=== PATIENT | female | born 1950 | race Two or more races ===

== ENCOUNTER 2023-08-19 11:26 | Emergency (ER) | payer MEDICAID, OTHER ==
[~2023-08-19] VITALS: Ht 152.4 cm; Wt 77.0 kg
[2023-08-19] MEDS: SODIUM CHLORIDE 0.9% 1,000 ML IV ONE (12:45)
[2023-08-19 13:59] LABS: Basophils # (auto) 0 10 ^3/uL (0-0.2); Basophils % (auto) 0.4 % (0.0-2.0); Eosinophils # (auto) 0 10 ^3/uL (0-0.8); Eosinophils % (auto) 0.9 % (0.0-7.0); Hematocrit 37.7 % (36.0-46.0); Hemoglobin 12.4 g/dL (12.2-16.2); Lymphocytes # (auto) 1.8 10 ^3/uL (0.4-5.4); Lymphocytes % (auto) 35.6 % (10.0-50.0); Mean Corpuscular Hemoglobin 31.7 pg (28.0-32.0); Mean Corpuscular Hgb Conc. 32.9 g/dL (32.0-36.0); Mean Corpuscular Volume 96.3 fL (80.0-100.0); Monocytes # (auto) 0.5 10 ^3/uL (0-1.3); Monocytes % (auto) 9.1 % (0.0-12.0); Neutrophils # (auto) 2.7 10 ^3/uL (1.6-8.6); Red Blood Cells 3.91 10^6/uL (4.0-5.20); Red Cell Distribution Width 14.6 % (11.8-14.3); White Blood Cell 5.1 10^3/uL (4.4-10.8)
[2023-08-19 14:21] LABS: Alanine Aminotransferase 19 U/L (7-40); Albumin 4.1 g/dL (3.2-4.8); Alkaline Phosphatase 105 U/L (46-116); Anion Gap 7 (5-15); Aspartate Aminotransferase 29 U/L (13-40); BUN/Creatinine Ratio 16.7 (10.0-20.0); Blood Urea Nitrogen 12 mg/dL (9-23); Calcium 9.4 mg/dL (8.7-10.4); Carbon Dioxide 25 mmol/L (20-30); Chloride 109 mmol/L (98-107); Glucose 100 mg/dL (74-106); Magnesium 1.9 mg/dL (1.6-2.6); Potassium 4.6 mmol/L (3.5-5.1); Sodium 141 mmol/L (136-145)
[2023-08-19 14:22] LABS: Bilirubin, Total 0.4 mg/dL (0.2-1.0); Total Protein 5.7 g/dL (5.7-8.2)
[2023-08-19] MEDS ORDERED: DICL50TA2 PO (16:34)
[2023-08-19] MEDS ORDERED: FAMO20TA10 PO (16:34)
[2023-08-19 16:42] VITALS: BP 152/54; PULSE 87; RESP 18; TEMP 97.9; O2SAT 98
== END 2023-08-19 16:53 | disposition home or self-care (01) ==
LOC: ER 11:26
DX: M66.0 Rupture of popliteal cyst (principal); E78.5 Hyperlipidemia, unspecified; E11.9 Type 2 diabetes mellitus without complications; M19.90 Unspecified osteoarthritis, unspecified site; Z98.890 Other specified postprocedural states
CPT/HCPCS: 36415; 71046; 80053; 83735; 85025; 93971

== ENCOUNTER 2023-10-06 12:01 | Inpatient (IN) | payer MEDICAID ==
[~2023-10-06] VITALS: Ht 160 cm; Wt 68.4 kg
[~2023-10-06 12:01] MED LIST: DICL50TA2 PO; FAMO20TA10 PO
[2023-10-06 12:39] VITALS: O2SAT 98
[2023-10-06] MEDS: ACETAMINOPHEN 325 MG TAB PO ONE (12:43)
[2023-10-06] MEDS: ONDANSETRON ODT 4 MG TAB PO ONE (12:43)
[2023-10-06 12:58] LABS: Basophils # (auto) 0 10 ^3/uL (0-0.2); Basophils % (auto) 0.4 % (0.0-2.0); Eosinophils # (auto) 0 10 ^3/uL (0-0.8); Eosinophils % (auto) 0.5 % (0.0-7.0); Hemoglobin 13.3 g/dL (12.2-16.2); Lymphocytes # (auto) 1.6 10 ^3/uL (0.4-5.4); Lymphocytes % (auto) 29.5 % (10.0-50.0); Mean Corpuscular Hemoglobin 31.4 pg (28.0-32.0); Mean Corpuscular Hgb Conc. 33.3 g/dL (32.0-36.0); Mean Corpuscular Volume 94.1 fL (80.0-100.0); Monocytes # (auto) 0.3 10 ^3/uL (0-1.3); Monocytes % (auto) 6.1 % (0.0-12.0); Neutrophils # (auto) 3.5 10 ^3/uL (1.6-8.6); Neutrophils % (auto) 63.5 % (37.0-80.0); Nucleated Red Blood Cells % 0.2 %; Red Blood Cells 4.25 10^6/uL (4.0-5.20); Red Cell Distribution Width 14.8 % (11.8-14.3); White Blood Cell 5.4 10^3/uL (4.4-10.8)
[2023-10-06 13:13] LABS: Chloride 107 mmol/L (98-107); Potassium 3.9 mmol/L (3.5-5.1); Sodium 140 mmol/L (136-145)
[2023-10-06 13:14] LABS: Anion Gap 9 (5-15); Calcium 9.7 mg/dL (8.7-10.4); Carbon Dioxide 24 mmol/L (20-30)
[2023-10-06 13:19] LABS: BUN/Creatinine Ratio 15.9 (10.0-20.0); Blood Urea Nitrogen 11 mg/dL (9-23); Glucose 124 mg/dL (74-106)
[2023-10-06] MEDS ORDERED: NITROGLYCERIN 0.4 MG SL TAB SL PRN (14:15)
[2023-10-06] MEDS: ASPirin 325 MG TAB PO ONE (14:15)
[2023-10-06] MEDS ORDERED: MORPHINE SULFATE INJ 2 MG/ml SYRG IV PRN (14:15)
[2023-10-06] MEDS ORDERED: DEXTROSE (50%) 50ML SYRG IV PRN (14:15)
[2023-10-06 15:29] LABS: LDL Cholesterol 143 mg/dL (< 100); Triglycerides 87 mg/dL (< 150)
[2023-10-06] MEDS: SODIUM CHLORIDE 0.9% 1,000 ML IV SCH (15:29)
[2023-10-06 15:31] LABS: Cholesterol 180 mg/dL (< 200); HDL Cholesterol 39 mg/dL (40-59)
[2023-10-06] MEDS: ACCU-CHEK COMFORT CURVE STRIP VI SCH (17:48)
[2023-10-06] MEDS: InsuLIN REG 1unit/0.01ml Soln (100units/ml) SC SCH (17:48)
[2023-10-06] MEDS: FAMOTIDINE 20 MG TAB PO SCH (22:24)
[2023-10-07] VITALS (8 sets, daily range): BP systolic 129–139; BP diastolic 45–63; PULSE 74–101; RESP 16–18; TEMP 97.4–97.9; O2SAT 94–98
[2023-10-07 09:35] LABS: Basophils # (auto) 0 10 ^3/uL (0-0.2); Basophils % (auto) 0.3 % (0.0-2.0); Eosinophils # (auto) 0 10 ^3/uL (0-0.8); Eosinophils % (auto) 0.5 % (0.0-7.0); Hematocrit 38.6 % (36.0-46.0); Hemoglobin 13.1 g/dL (12.2-16.2); Lymphocytes # (auto) 1.4 10 ^3/uL (0.4-5.4); Lymphocytes % (auto) 29.4 % (10.0-50.0); Mean Corpuscular Hemoglobin 31.7 pg (28.0-32.0); Mean Corpuscular Hgb Conc. 33.9 g/dL (32.0-36.0); Mean Corpuscular Volume 93.6 fL (80.0-100.0); Monocytes # (auto) 0.4 10 ^3/uL (0-1.3); Monocytes % (auto) 7.5 % (0.0-12.0); Neutrophils % (auto) 62.3 % (37.0-80.0); Red Blood Cells 4.12 10^6/uL (4.0-5.20); Red Cell Distribution Width 14.8 % (11.8-14.3); White Blood Cell 4.9 10^3/uL (4.4-10.8)
[2023-10-07 10:07] LABS: Alanine Aminotransferase 16 U/L (7-40); Albumin 4.3 g/dL (3.2-4.8); Alkaline Phosphatase 94 U/L (46-116); Anion Gap 8 (5-15); Aspartate Aminotransferase 29 U/L (13-40); BUN/Creatinine Ratio 16.4 (10.0-20.0); Blood Urea Nitrogen 11 mg/dL (9-23); Calcium 9.1 mg/dL (8.7-10.4); Carbon Dioxide 25 mmol/L (20-30); Chloride 106 mmol/L (98-107); Glucose 150 mg/dL (74-106); Potassium 3.6 mmol/L (3.5-5.1); Sodium 139 mmol/L (136-145)
[2023-10-07 10:08] LABS: Bilirubin, Total 0.8 mg/dL (0.2-1.0); Total Protein 6.9 g/dL (5.7-8.2)
[2023-10-07] MEDS: ASPirin 81 mg TAB PO SCH (11:05)
[2023-10-07] MEDS: ENOXAPARIN SOD 40 MG/0.4 ML SYRINGE SC SCH (11:06)
[2023-10-07] MEDS: hydroCHLOROthiazide 25 MG TAB PO ONE (17:45)
[2023-10-07 20:41] LABS: Urine Bacteria None Seen /hpf (None Seen)
[2023-10-07] MEDS: ACETAMINOPHEN 325 MG TAB PO PRN (20:49)
[2023-10-07] MEDS: ATORVASTATIN 20 MG TAB PO SCH (20:49)
[2023-10-07 20:51] LABS: Urine Blood Negative /uL (Negative); Urine Clarity Clear (Clear); Urine Color Light-Yellow (Yellow); Urine Protein, UAD Negative (Negative); Urine Specific Gravity 1.007 (1.001-1.035); Urine Urobilinogen Normal (Negative); Urine WBC <1 /hpf (0 - 5); Urine pH 6.5 (5.0-9.0)
[2023-10-08 01:00] VITALS: BP 131/63; PULSE 78; RESP 16; TEMP 97.8; O2SAT 100
[2023-10-08 05:00] VITALS: BP 118/49; PULSE 78; RESP 17; TEMP 98.3; O2SAT 98
[2023-10-08 08:00] VITALS: PULSE 86; RESP 18
[2023-10-08 09:00] VITALS: BP 138/55; PULSE 78; RESP 16; TEMP 98.4; O2SAT 97
[2023-10-08] MEDS: hydroCHLOROthiazide 25 MG TAB PO SCH (09:01)
[2023-10-08] MEDS ORDERED: ARTIFICIAL TEARS 15ml EACHEYE PRN (11:45)
[2023-10-08] MEDS ORDERED: TRIA37.587 PO (11:49)
[2023-10-08] MEDS ORDERED: GLIP5TAB21 PO (11:52)
[2023-10-08] MEDS ORDERED: METF-370 PO (11:53)
[2023-10-08] MEDS ORDERED: ATOR20TA50 PO (11:54)
[2023-10-08] MEDS ORDERED: GABA-1250 PO (11:54)
[2023-10-08 13:00] VITALS: BP 131/78; PULSE 87; RESP 14; TEMP 87; O2SAT 96
[2023-10-08 13:53] VITALS: BP 131/59; PULSE 87; RESP 14; TEMP 97.9; O2SAT 96
== END 2023-10-08 15:30 | disposition home or self-care (01) | DRG 203 ==
LOC: ER 12:06 → TELE 14:17 → TELE-WESTW 14:17
PROVIDERS: ADMIT Internal Medicine; ATTEND Emergency Medicine
DX: M94.0 Chondrocostal junction syndrome [Tietze] (principal); E11.9 Type 2 diabetes mellitus without complications; E78.5 Hyperlipidemia, unspecified; K21.9 Gastro-esophageal reflux disease without esophagitis; I10 Essential (primary) hypertension; M54.2 Cervicalgia; Z79.899 Other long term (current) drug therapy
CPT/HCPCS: 36415; 71045; 80048; 80053; 80061; 81001; 82962; 83036; 84443; 84484; 85025; 93005; 93306; 93971; G0378; J1815; Q0162

== ENCOUNTER 2024-06-14 13:34 | Emergency (ER) | payer MEDICAID ==
[~2024-06-14] VITALS: Ht 154.9 cm; Wt 68.1 kg
[~2024-06-14 13:34] MED LIST changes: +ATOR20TA50 PO; +GABA-1250 PO; +GLIP5TAB21 PO; +METF-370 PO; +TRIA37.587 PO
[2024-06-14 14:36] VITALS: BP 147/67; PULSE 83; RESP 18; TEMP 98.4; O2SAT 97
[2024-06-14] MEDS ORDERED: DULO20CA PO (16:06)
--- NOTE | 2024-06-14 16:06 | ED.PDOC ---
Musculoskeletal HPI Comments 73-year-old female presents with a chief complaint of neuropathy. Has a pertinent MHx of diabetes. Currently taking gabapentin 300 mg b.i.d. Denies chest pain shortness of breath Wells score is negative for DVT Chief Complaint: Lower Extremity Time Seen by MD: 14:00 Primary Care Provider: NONE Reviewed Notes: Nurses Notes, Medications, Allergies Allergies: Coded Allergies: NO KNOWN ALLERGIES (Unverified , 08/19/23) Home Meds Active Scripts Duloxetine Hcl (Cymbalta) 20 Mg Cap, 1 CAP PO DAILY for 30 Days, #30 CAP 1 Refill Prov:ELDER DAVIDSON NP 06/14/24 Hydrochlorothiazide W/Triamter (Dyazide 37.5/25MG) 1 Cap Cp, 1 CAP PO DAILY for 30 Days, #30 CAP 3 Refills Prov:JOSE ALBERTO CHANG MD 10/08/23 Famotidine (PEPCID TABLET) 20 Mg Tb, 1 TAB PO BID for 20 Days, #40 TAB 5 Refills Prov:CHRISTIANO AARON MD 08/19/23 Diclofenac Potassium (Diclofenac Potassium) 50 Mg Tab, 1 TAB PO TIDP for 5 Days, #15 TAB Prov:CHRISTIANO AARON MD 08/19/23 Reported Medications Atorvastatin Calcium (ATORVASTATIN CALCIUM) 20 Mg Tab, 1 TAB PO DAILY, #30 TAB 5 Refills 10/08/23 Gabapentin (Gabapentin) 300 Mg Cap, 1 CAP PO TID, #90 CAP 5 Refills 10/08/23 Metformin Hydrochloride (Metformin Hcl) 500 Mg Tab, 1 TAB PO BID, #60 TAB 3 Refills 10/08/23 Glipizide (Glipizide) 5 Mg Tab, 1 TAB PO DAILY, #60 TAB 3 Refills 10/08/23 Information Source: Patient Mode of Arrival: Ambulatory Past Medical History PAST MEDICAL HISTORY: Arthritis, DM, High Lipids 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 Family History Family History: Reviewed,noncontributory to illness, Unknown Social History Smoker: Non-Smoker Alcohol: Denies ETOH Use Drugs: Denies Drug Use Lives In: Home All Other Systems: Reviewed and Negative (Per HPI) Physical Exam General Appearance: No Apparent Distress, Normal HEENT: Normal ENT Inspection, Pharynx Normal, TMs Normal Neck: Full Range of Motion, Non-Tender, Normal, Normal Inspection Respiratory: Chest Non-Tender, Lungs Clear, No Accessory Muscle Use, No Respiratory Distress, Normal Breath Sounds Cardiovascular: No Edema, No JVD, No Murmur, No Gallop, Normal Peripheral Pulses, Regular Rate/Rhythm Breast Exam: Deferred Gastrointestinal: No Organomegaly, Non Tender, No Pulsatile Mass, Normal Bowel Sounds, Soft Genitalia: Deferred Pelvic: Deferred Rectal: Deferred Extremities: No calf tenderness, Normal capillary refill, Normal inspection, Normal range of motion, Non-tender, No pedal edema Musculoskeletal : Apperance: Normal Neurologic: Alert, motor and generator assembler II-XII nml as Tested, No Motor Deficits, Normal Affect, Normal Mood, No Sensory Deficits Cerebellar Function: Normal Reflexes: Normal Skin: Dry, Normal Color, Warm Lymphatic: No Adenopathy Was a procedure done? Was a procedure done?: No Differential Diagnosis EXT Differential Diagnosis: Other X-Ray, Labs, Meds, VS Vital Signs Date Time Temp Pulse Resp B/P (MAP) Pulse Ox O2 Delivery O2 Flow Rate FiO2 06/14/24 14:36 98.4 83 18 147/67 (93) 97 98.4 06/14/24 14:36 83 18 97 Room Air 06/14/24 14:01 98.4 83 18 147/67 (93) 97 98.4 X-Ray, Labs, Meds, VS Comment Continue with the gabapentin and trial of Cymbalta once daily On reevaluation, patient had symptomatic improvement. Patient is stable for discharge at this time. External notes reviewed. Test results and diagnostic imaging interpreted. All diagnostic findings, discharge care, education and instructions provided Follow-up with PCP in 2 to 3 days Patient verbalized understanding and agreed to treatment plan Vital signs stable, afebrile, no acute distress noted Patient ambulatory with strong steady gait Advised to return precautions for any new or worsening symptoms, return to ER immediately for re-evaluation Patient is aware that the purpose of this visit was for an acute medical em ergency requiring emergent stabilization. Chronic conditions, including malignancies have not been ruled out. Patient is instructed to follow up with PCP as directed and discharge instructions for continued care and workup. If unable to arrange follow-up, patient is to return to the emergency department for reassessment. Patient (parent or legal guardian if applicable) was given verbal and written discharge instructions and acknowledges understanding. Time of 1ST Reevaluation: 16:00 Reevaluation 1ST: Improved Patient Education/Counseling: Diagnosis, Treatment Family Education/Counseling: Diagnosis, Treatment Departure 1 Departure Time of Disposition: 16:05 Impression: Primary Impression: Neuropathy Disposition: 01 HOME / SELF CARE / HOMELESS Condition: Stable e-Prescriptions Duloxetine Hcl (Cymbalta) 20 Mg Cap 1 CAP PO DAILY for 30 Days, #30 CAP 1 Refill Prov: ELDER DAVIDSON NP 06/14/24 Critical Care Note Critical Care Time?: No Stability Stability form required: No Heart Score Heart Score: Heart Score Response (Comments) Value History N/A 0 EKG N/A 0 Age N/A 0 Risk Factors N/A 0 Troponin N/A 0 Total 0 ELDER DAVIDSON NP Jun 14, 2024 16:06
== END 2024-06-14 16:13 | disposition home or self-care (01) ==
LOC: ER 13:34
DX: G62.9 Polyneuropathy, unspecified (principal); E11.9 Type 2 diabetes mellitus without complications; E78.5 Hyperlipidemia, unspecified; M19.90 Unspecified osteoarthritis, unspecified site; Z79.84 Long term (current) use of oral hypoglycemic drugs; Z79.899 Other long term (current) drug therapy

== ENCOUNTER 2024-12-19 17:30 | Emergency (ER) | payer MEDICAID ==
[~2024-12-19] VITALS: Ht 154.9 cm; Wt 73.0 kg
[~2024-12-19 17:30] MED LIST changes: +DULO20CA PO
[2024-12-19] MEDS: HYDROcodone-ACET 10/325MG TAB PO ONE (18:30)
--- NOTE | 2024-12-19 18:34 | ED.PDOC ---
Musculoskeletal HPI Comments 74-year-old female who came to ER for right lower extremity pain. Has a history of hypertension, diabetes, dyslipidemia, status post right knee surgery. Past 3 days, having right hip pain, radiating down her right lower leg, with the swelling of the right knee. Denies any recent trauma. Chief Complaint: Lower Extremity Time Seen by MD: 18:33 Primary Care Provider: NONE Reviewed Notes: Nurses Notes Allergies: Coded Allergies: NO KNOWN ALLERGIES (Unverified , 08/19/23) Home Meds Active Scripts Gabapentin (Once-Daily) (Gabapentin) 300 Mg Tab, 300 MG PO Q6HP PRN for 60 Days, #240 TAB Prov:BRIAN MOORE MD 12/19/24 Duloxetine Hcl (Cymbalta) 20 Mg Cap, 1 CAP PO DAILY for 30 Days, #30 CAP 1 Refill Prov:ELDER DAVIDSON NP 06/14/24 Hydrochlorothiazide W/Triamter (Dyazide 37.5/25MG) 1 Cap Cp, 1 CAP PO DAILY for 30 Days, #30 CAP 3 Refills Prov:JOSE ALBERTO CHANG MD 10/08/23 Famotidine (PEPCID TABLET) 20 Mg Tb, 1 TAB PO BID for 20 Days, #40 TAB 5 Refills Prov:CHRISTIANO AARON MD 08/19/23 Diclofenac Potassium (Diclofenac Potassium) 50 Mg Tab, 1 TAB PO TIDP for 5 Days, #15 TAB Prov:CHRISTIANO AARON MD 08/19/23 Reported Medications Atorvastatin Calcium (ATORVASTATIN CALCIUM) 20 Mg Tab, 1 TAB PO DAILY, #30 TAB 5 Refills 10/08/23 Gabapentin (Gabapentin) 300 Mg Cap, 1 CAP PO TID, #90 CAP 5 Refills 10/08/23 Metformin Hydrochloride (Metformin Hcl) 500 Mg Tab, 1 TAB PO BID, #60 TAB 3 Refills 10/08/23 Glipizide (Glipizide) 5 Mg Tab, 1 TAB PO DAILY, #60 TAB 3 Refills 10/08/23 Information Source: Patient Mode of Arrival: Ambulatory Location: Right Extremity Location: Knee, Leg Timing: Days Severity: Moderate Able to Move Extremity: Yes Bear Weight: Limited Pain: Moderate Mechanism: Spontaneous Circumstances: Spontaneous Onset of Symptoms: Spontaneous Symptoms: Swelling, Pain Associated signs and symptoms: Leg pain, Hip pain Past Medical History PAST MEDICAL HISTORY: Arthritis, DM, High Lipids, HTN Past Medical History (Other): Ovarian cancer Surgical History: Cholecystectomy, Hysterectomy Surgical History (Other): Right knee surgery 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 Family History Family History: Reviewed,noncontributory to illness, Unknown Social History Smoker: Non-Smoker Alcohol: Denies ETOH Use Drugs: Denies Drug Use Lives In: Home Constitutional: denies: chills, diaphoresis, fatigue, fever, malaise, sweats, weakness, others EENTM: denies: blurred vision, double vision, ear bleeding, ear discharge, ear drainage, ear pain, ear ringing, eye pain, eye redness, hearing loss, mouth pain, mouth swelling, nasal discharge, nose bleeding, nose congestion, nose pain, photophobia, tearing, throat pain, throat swelling, voice changes, others Respiratory: denies: cough, hemoptysis, orthopnea, SOB at rest, shortness of breath, SOB with excertion, stridor, wheezing, others Cardiovascular: denies: chest pain, dizzy spells, diaphoresis, Dyspnea on exertion, edema, irregular heart beat, left arm pain, lightheadedness, palp itations, PND, syncope, others Gastrointestinal: denies: abdomen distended, abdominal pain, blood streaked bowels, constipated, diarrhea, dysphagia, difficulty swallowing, hematemesis, melena, nausea, poor appetite, poor fluid intake, rectal bleeding, rectal pain, vomiting, others Genitourinary: denies: abnormal vagina bleeding, burning, dyspareunia, dysuria, flank pain, frequency, hematuria, incontinence, pain, , vagina discharge, urgency, others Neurological: denies: dizziness, fainting, headache, left sided numbness, left sided weakness, numbness, paresthesia, pre-existing deficit, right sided numbness, right sided weakness, seizure, speech problems, tingling, tremors, weakness, others Musculoskeletal: reports: joint pain (Right hip), muscle pain (Right lower leg); denies: back pain, gout, joint swelling, muscle stiffness, neck pain, others Integumetry: denies: bruises, change in color, change in hair/nails, dryness, laceration, lesions, lumps, rash, wounds, others Allergic/Immunocompromised: denies: Difficulty Healing, Frequent Infections, Hives, Itching, others Hematologic/Lymphatic: denies: anemia, blood clots, easy bleeding, easy bruising, swollen glands, others Endocrine: denies: excessive hunger, excessive sweating, excessive thirst, excessive urination, flushing, intolerance to cold, intolerance to heat, unexplained weight gain, unexplained weight loss, others Psychiatric: denies: anxiety, bipolar disorder, depression, hopeless, panic disorder, schizophrenia, sleepless, suicidal, others Physical Exam General Appearance: No Apparent Distress, Normal HEENT: Normal ENT Inspection, Pharynx Normal, TMs Normal Neck: Full Range of Motion, Non-Tender, Normal, Normal Inspection Respiratory: Chest Non-Tender, Lungs Clear, No Accessory Muscle Use, No Respiratory Distress, Normal Breath Sounds Cardiovascular: No Edema, No JVD, No Murmur, No Gallop, Normal Peripheral Pulses, Regular Rate/Rhythm Breast Exam: Deferred Gastrointestinal: No Organomegaly, Non Tender, No Pulsatile Mass, Normal Bowel Sounds, Soft Genitalia: Deferred Pelvic: Deferred Rectal: Deferred Extremities: No calf tenderness, Normal capillary refill, Normal inspection, Normal range of motion, Non-tender, No pedal edema Musculoskeletal : Apperance: Normal Neurologic: Alert, probation and parole officer II-XII nml as Tested, No Motor Deficits, Normal Affect, Normal Mood, No Sensory Deficits Cerebellar Function: Normal Reflexes: Normal Skin: Dry, Normal Color, Warm Lymphatic: No Adenopathy Was a procedure done? Was a procedure done?: No Differential Diagnosis EXT Differential Diagnosis: Cellulitis, Deep Vein Thrombosis, Sprain, Arthritis, Other (Sciatica) X-Ray, Labs, Meds, VS Vital Signs Date Time Temp Pulse Resp B/P (MAP) Pulse Ox O2 Delivery O2 Flow Rate FiO2 12/19/24 19:26 97.9 80 16 144/58 (86) 98 97.9 12/19/24 19:26 80 16 98 Room Air 12/19/24 17:31 98.3 85 14 137/85 98 98.3 Current Medications Medications (Trade) Dose Ordered Sig/Celestina Route Start Time Stop Time Status Last Admin Acetaminophen/ Hydrocodone Bitart (Warren 10/325MG Tab) 1 tab ONCE ONCE PO 12/19/24 18:30 12/19/24 18:32 DC 12/19/24 18:30 PROCEDURE(s): PELVS - PELVIS AP REASON: pain ORDER NUMBER(s): [id number], ACCESSION NUMBER(s): [id number] CLINICAL INDICATION: pain TECHNIQUE: 1 radiographic views of the pelvis were obtained. Comparison: None FINDINGS/IMPRESSION: Alignment is normal. No findings of acute fracture. Stool-filled rectosigmoid colon. EDURE(s): LUMB2 - LUMBAR SPINE 3 VIEW REASON: pain / sciatica ORDER NUMBER(s): [id number], ACCESSION NUMBER(s): [id number] CLINICAL INDICATION: pain / sciatica TECHNIQUE: 2 radiographic views of the lumbar spine were obtained. Comparison: None FINDINGS/IMPRESSION: Stool noted throughout the colon Surgical clips right upper quadrant from previous cholecystectomy. No compressed vertebra Mild anterior spondylolisthesis L4-5 measured proximally 2-3 mm. Procedure: US RT Lower DVT Study Date and Requested Time: 12/19/2024 06:57 PM History: RLE pain Technique: Multiple high resolution garcia-scale images with and without compression obtained of the right lower extremity veins, including the common femoral vein, deep femoral vein, proximal mid and distal superficial femoral vein, and popliteal vein. Additional limited images of the greater saphenous vein also obtained. Augmentation performed as indicated. Color and spectral doppler flow images obtained as indicated. Findings: No visible intraluminal venous thrombus. No evidence of incompressibility or abnormal color or spectral Doppler flow visualized in the right lower extremity veins including, the common femoral vein, deep femoral vein, proximal mid and distal superficial femoral vein, and popliteal vein. Greater saphenous vein grossly unremarkable. Impression: No sonographic evidence of right lower extremity deep venous thrombosis. Time of 1ST Reevaluation: 18:31 Reevaluation 1ST: Unchanged Patient Education/Counseling: Diagnosis, Treatment Family Education/Counseling: No Family Present Departure 1 Departure Time of Disposition: 20:30 Impression: Primary Impression: Sciatica of right side Additional Impression: Neuropathy Disposition: 01 HOME / SELF CARE / HOMELESS Condition: Stable e-Prescriptions Gabapentin (Once-Daily) (Gabapentin) 300 Mg Tab 300 MG PO Q6HP PRN for 60 Days, #240 TAB Prov: BRIAN MOORE MD 12/19/24 Discharged With: Self Critical Care Note Critical Care Time?: No Stability Stability form required: No Heart Score Heart Score: Heart Score Response (Comments) Value History N/A 0 EKG N/A 0 Age N/A 0 Risk Factors N/A 0 Troponin N/A 0 Total 0 I personally scribed for BRIAN MOORE MD ([email or web address]) on 12/19/24 at 18:34. Electronically submitted by Sukhdeep Plasencia ([employer]OCUS Trainr). I personally scribed for BRIAN MOORE MD ([email or web address]) on 12/19/24 at 20:17. El ectronically submitted by Sukhdeep Plasencia (FOCUS Trainr). BRIAN MOORE MD Dec 19, 2024 18:34
--- NOTE | 2024-12-19 19:19 | DVH ---
CLINICAL INDICATION: pain TECHNIQUE: 1 radiographic views of the pelvis were obtained. Comparison: None FINDINGS/IMPRESSION: Alignment is normal. No findings of acute fracture. Stool-filled rectosigmoid colon.
--- NOTE | 2024-12-19 19:21 | DVH ---
CLINICAL INDICATION: pain / sciatica TECHNIQUE: 2 radiographic views of the lumbar spine were obtained. Comparison: None FINDINGS/IMPRESSION: Stool noted throughout the colon Surgical clips right upper quadrant from previous cholecystectomy. No compressed vertebra Mild anterior spondylolisthesis L4-5 measured proximally 2-3 mm.
[2024-12-19 19:26] VITALS: BP 144/58; PULSE 80; RESP 16; TEMP 97.9; O2SAT 98
--- NOTE | 2024-12-19 19:43 | DVH ---
Procedure: US RT Lower DVT Study Date and Requested Time: 12/19/2024 06:57 PM History: RLE pain Comparison: US RT LOWER DVT on DOS: 10/07/23, US RT LOWER DVT on DOS: 08/19/23 Technique: Multiple high resolution garcia-scale images with and without compression obtained of the ri t lower extremity veins, including the common femoral vein, deep femoral vein, proximal mid and dis bob superficial femoral vein, and popliteal vein. Additional limited images of the greater saphenous vein also obtained. Augmentation performed as indicated. Color and spectral doppler flow images obtai jamaal as indicated. Findings: No visible intraluminal venous thrombus. No evidence of incompressibility or abnormal color or spectr al Doppler flow visualized in the right lower extremity veins including, the common femoral vein, ari p femoral vein, proximal mid and distal superficial femoral vein, and popliteal vein. Greater sapheno us vein grossly unremarkable. Impression: No sonographic evidence of right lower extremity deep venous thrombosis.
[2024-12-19] MEDS ORDERED: GABA300T4 PO (20:09)
== END 2024-12-19 20:09 | disposition left against medical advice (07) ==
LOC: ER 17:30
DX: M54.31 Sciatica, right side (principal); E11.40 Type 2 diabetes mellitus with diabetic neuropathy, unspecified; I10 Essential (primary) hypertension; E78.5 Hyperlipidemia, unspecified; M19.90 Unspecified osteoarthritis, unspecified site; Z79.84 Long term (current) use of oral hypoglycemic drugs; Z79.899 Other long term (current) drug therapy; Z85.43 Personal history of malignant neoplasm of ovary; Z90.49 Acquired absence of other specified parts of digestive tract; Z90.710 Acquired absence of both cervix and uterus; Z98.890 Other specified postprocedural states
CPT/HCPCS: 72100; 72170; 93971